=== PATIENT | female | born 1955 | race Caucasian/White ===

== ENCOUNTER 2016-10-17 09:28 | Day surgery (SDC) | payer BC ==
[~2016-10-17 09:28] MED LIST: ACETAMINOPHEN 325 MG TABLET PO PRN; ACETYLCHOLINE CHLORIDE 20 DROP KIT IO PRN; BUPIVACAINE HCL/PF 30 ML VIAL IJ PRN; CYCLOPENTOLATE HCL 20 DROP BTL RIGHTEYE PRN; DEXTROSE 5%-0.5 NORMAL SALINE 1,000 ML IV PRN; EPINEPHrine 1 MG/ML AMPUL IO PRN; HYALURONATE SODIUM 0.4 ML DISP.SYRIN IO PRN; HYALURONATE SODIUM 0.85 ML DISP.SYRIN IO PRN; LIDOCAINE HCL/PF 200 MG/5 ML AMPUL TP PRN; LIDOCAINE HCL/PF 5 ML VIAL IO PRN; NORMAL SALINE 3 ML BOX IV PRN; TETRACAINE HCL 150 DROP BTL OP PRN
[2016-10-17] MEDS: PHENYLEPHRINE HCL 50 DROP BTL RIGHTEYE PRN ×3 (10:05→10:32)
[2016-10-17] MEDS: TROPICAMIDE 150 DROP BTL RIGHTEYE PRN ×3 (10:05→10:32)
[2016-10-17 12:26] VITALS: BP 117/63
== END 2016-10-17 09:29 | disposition home or self-care (01) ==
LOC: AMB 09:28
PROVIDERS: ATTEND Ophthalmology
PROC: 08RJ3JZ Replacement of Right Lens with Synthetic Substitute, Percutaneous Approach (ICD-10-PCS; principal; 2016-10-17 11:00)
DX: H26.9 Unspecified cataract (principal); Z68.30 Body mass index [BMI] 30.0-30.9, adult

== ENCOUNTER 2016-11-14 09:39 | Day surgery (SDC) | payer BC ==
[~2016-11-14 09:39] MED LIST changes: +CYCLOPENTOLATE HCL 20 DROP BTL LEFTEYE PRN; -CYCLOPENTOLATE HCL 20 DROP BTL RIGHTEYE PRN
[2016-11-14] MEDS: PHENYLEPHRINE HCL 50 DROP BTL LEFTEYE PRN ×3 (09:55→10:20)
[2016-11-14] MEDS: TROPICAMIDE 150 DROP BTL LEFTEYE PRN ×3 (09:55→10:20)
[2016-11-14] MEDS ORDERED: DEXTROSE 5%-0.5 NORMAL SALINE 1,000 ML IV ONE (10:05)
[2016-11-14 11:57] VITALS: BP 127/76
== END 2016-11-14 09:40 | disposition home or self-care (01) ==
LOC: AMB 09:39
PROVIDERS: ATTEND Ophthalmology
PROC: 08RK3JZ Replacement of Left Lens with Synthetic Substitute, Percutaneous Approach (ICD-10-PCS; principal; 2016-11-14 11:00)
DX: H26.9 Unspecified cataract (principal); Z68.30 Body mass index [BMI] 30.0-30.9, adult